=== PATIENT | female | born 1995 | race Caucasian/White ===

== ENCOUNTER 2020-05-14 22:50 | Emergency (ER) | payer OTHER, SELFPAY ==
--- NOTE | 2020-05-14 | US_ITS ---
EXAMINATION: ULTRASOUND OF THE PELVIS CLINICAL INFORMATION: Left lower quadrant pain. COMPARISON: None. TECHNIQUE: Transabdominal and transvaginal pelvic ultrasound. Doppler evaluation with spectral analysis was performed. A transvaginal study was performed in addition to the transabdominal study which did not yield an adequate examination of the uterus and ovaries due to superimposed distended gas-filled loops of bowel. FINDINGS: The uterus is normal in size and appearance, measuring 6.7 x 3.4 x 4.1 cm longitudinally, anteroposteriorly and transversely. The endometrial stripe thickness is normal, measuring 0.5 cm in thickness. No focal myometrial mass is seen. The ovaries bilaterally are visualized, with the right ovary measuring 3.1 x 1.3 x 2.5 cm and the left ovary measuring 6.7 x 4.6 x 6.5 cm. There are normal arterial and venous spectral waveforms bilaterally. Within the left ovary there is a complex cyst measuring 6.2 x 4 x 6.5 cm. There are internal septations. No internal Doppler vascularity. Within the right ovary there is an echogenic focus measuring 0.5 cm. This could represent fat. Trace pelvic free fluid. IMPRESSION: No evidence of active ovarian torsion at this time. Complex left ovarian cyst, favoring a hemorrhagic cyst. Consider follow-up in 6 or 10 weeks.
[2020-05-14 22:51] VITALS: BP 129/79; PULSE 97; RESP 18; TEMP 36.4; O2SAT 99; BMI 37.2
--- NOTE | 2020-05-14 23:50 | ED.GENADULT ---
HPI - General Adult General Chief complaint: General Medical Stated complaint: Pelvic Pain Time Seen by Provider: 05/14/20 23:48 History of Present Illness HPI narrative: This is a 24-year-old female who presents with 5 days of suprapubic and left lower quadrant discomfort with sexual intercourse. this has not been associated with fevers, chills, nausea, vomiting, diarrhea, urinary pain / burning / frequency, vaginal discharge, and patient states she is in a monogamous relationship for 3 years. In addition, patient was evaluated by her cosmetic sales consultant for urinalysis which was negative and urine which was negative. Related Data Home Medications Medication Instructions Recorded Confirmed No Known Home Meds 05/14/20 05/14/20 Allergies Allergy/AdvReac Type Severity Reaction Status Date / Time No Known Allergies Allergy Verified 05/14/20 23:51 Review of Systems Review of Systems: Pertinent positives and negatives as stated in the HPI. GEN: no fevers, chills, fatigue HEENT: no nasal congestion, sore throat, ear pain NEURO: no headache, dizziness, focal weakness PULM: no cough, shortness of breath CV: no chest pain, palpitations, LE edema ABD: no nausea, vomiting, diarrhea : no dysuria, urgency, frequency SKIN: no rash ROS otherwise negative x 10 PMFSH Past Medical History Source: nursing notes reviewed Social History Social History Alcohol intake: never Smoking Status: Current every day smoker Smoked in Last 30 Days: Yes Use of substances other than those prescribed or required for medical reasons: No Advance Directives: No Advance Directives Information Provided: No Physical Exam Vital Signs and I&O and Narrative: Vital Signs and I&O: Vital Signs Temp 98.2 F 05/14/20 23:53 Pulse 97 05/14/20 22:51 Resp 16 05/14/20 23:53 BP 112/71 05/14/20 23:53 Pulse Ox 98 05/14/20 23:53 Intake & Output 05/14/20 05/14/20 05/15/20 06:59 18:59 06:59 Weight 95.254 kg Body Mass Index 37.2 VITAL SIGNS: Reviewed. GENERAL: Well developed, well nourished, in no acute distress. HEAD: Normocephalic/atraumatic, EYES: PERRLA, EOMI intact without pain, no nystagmus/pallor/icterus noted EARS: Ext canals without abnormality, TMs non-bulging and non-erythematous NOSE: Nares patent bilateral OROPHARYNX: no oral lesions noted, posterior pharynx clear and non-erythematous without noted tonsillar enlargement/erythema/exudates NECK: Supple, no adenopathy LUNGS: Normal breath sounds. No adventitious sounds or accessory muscle use. SpO2<99> CARDIOVASCULAR: Regular rate and rhythm without noted murmurs, no JVD or lower extremity edema. ABDOMEN: Soft, non-tender, non-distended with bowel sounds. No rigidity. No guarding. No palpable masses or hernias noted MUSCULOSKELETAL: No tenderness, deformities, or effusions noted on gross inspection. EXTREMITIES: No cyanosis, clubbing or edema. SKIN: Inspection of the skin reveals no rashes, ulcerations, jaundice, pallor, or petechiae. NEUROLOGIC: Alert and oriented x 4. Strength and sensation to light touch were grossly intact x 4. Course Course Course Narrative: This is a 24-year-old female with history and clinical presentation consistent with likely constipation, but will rule out ectopic, UTI, torsion. There is no UTI and urine test is negative. On review of ultrasound there is a complex cyst 6.2 x 4 x 6.5 with internal septations but no evidence torsion. All results and findings were discussed with the patient at bedside and she was instructed to follow-up with her OB doctor. Medical Decision Making Lab Data Labs: Lab Results 05/15/20 Range/Units 00:33 Urine Color YELLOW Urine Appearance CLEAR Urine pH 7.0 (5.0-8.0) Ur Specific [place] 1.025 (1.005-1.025) Urine Protein NEG (NEG-TRACE) MG/DL Urine Glucose (UA) NEG (NEG) MG/DL Urine Ketones 5 (NEG) MG/DL Urine Blood NEG (NEG) Urine Nitrite NEG (NEG) Ur Leukocyte Esterase NEG (NEG) Urine Test NEGATIVE (NEGATIVE) Discharge Plan Discharge Clinical Impression: Ovarian cyst Qualifiers: Laterality: left Qualified Code(s): N83.202 - Unspecified ovarian cyst, left side Patient Disposition: Home, Self-Care Instructions: Ovarian Cyst (ED) Additional Instructions: 1. Tylenol 1000 mg, orally, every 6 hours as needed for pain control. Do not exceed 4000 mg within 24 hours. 2. ibuprofen 400 mg, orally with milk or food, every 6 hours as needed for pain control. 3. follow-up with your maternal fetal physician The patient and/or family acknowledge understanding of results (as applicable), diagnosis, treatment plan, need for follow up, and symptoms that should prompt a return to the emergency room. Prescriptions: No Action No Known Home Meds RF: 0 Referrals: Physician,Unknown [Primary Care Provider] - 2 days
[2020-05-14 23:53] VITALS: BP 112/71; PULSE 84; RESP 16; TEMP 36.8; O2SAT 98
[2020-05-15 00:48] LABS: Glucose Urine UA NEG (NEG); Leukocyte Esterase Urine NEG (NEG); Nitrite Urine NEG (NEG); Specific Gravity - Urine 1.025 (1.005-1.025); Urine Blood NEG (NEG); Urine Ketones 5 MG/DL (NEG); Urine Protein NEG (NEG-TRACE)
[2020-05-15 00:49] LABS: Appearance Urine CLEAR; Color Urine YELLOW; UACC Culture Trigger NO; UPreg QC Valid YES; Urine Pregnancy NEGATIVE (NEGATIVE)
[2020-05-15 01:40] VITALS: BP 119/71; PULSE 80; RESP 16; TEMP 36.8; O2SAT 98
== END 2020-05-15 01:40 | disposition home or self-care (01) ==
PROVIDERS: Emergency Provider Student in an Organized Health Care Education/Training Program
DX: N83.202 Unspecified ovarian cyst, left side (principal); R10.2 Pelvic and perineal pain; F17.200 Nicotine dependence, unspecified, uncomplicated; Z71.6 Tobacco abuse counseling
CPT/HCPCS: 76830; 76856; 81003; 81025; 93975; 99284